=== PATIENT | male | born 1985 | race Caucasian/White ===

== ENCOUNTER 2021-03-04 10:07 | Day surgery (SDC) | payer OTHER ==
[~2021-03-04] VITALS: Ht 175.3 cm; Wt 94.7 kg
[2021-03-04 10:38] VITALS: BP 133/91; PULSE 77; TEMP 96.4
[2021-03-04] MEDS ORDERED: PROTONIX 40MG T40 MG PO (10:51)
[2021-03-04 12:35] VITALS: BP 125/88; PULSE 77; TEMP 97.3
--- NOTE | 2021-03-04 12:35 | NUR ---
PATIENT TRANSPORTED PER CART FROM GI SUITE TO BAY 1 ACCOMPANIED BY ENDO RN. PATIENT AMBULATED FROM CART TO CHAIR WITH STEADY GAIT. WITH 1 ASSIST. MONITORS APPLIED. VSS ON ROOM AIR. PATIENT TALKS WITH STAFF. VERBAL REPORT RECEIVED.
[2021-03-04 12:45] VITALS: BP 132/97; PULSE 64
--- NOTE | 2021-03-04 12:45 | NUR ---
VSS ON ROOM AIR. DR ROOT SPEAKS WITH PATIENT AND GIRLFRIEND WAS ON PHONE. PATIENT EATS MUFFIN AND DRINKS COFFEE WITHOUT PROBLEMS.
[2021-03-04 13:00] VITALS: BP 130/94; PULSE 69
--- NOTE | 2021-03-04 13:05 | NUR ---
VSS ON ROOM AIR. PATIENT TALKS WITH STAFF, DENIES PROBLEMS. IV SITE DC'D WITH CATHETER TIP INTACT. PRESSURE AND BANDAGE APPLIED. DISCHARGE INSTRUCTIONS GIVEN VERBAL AND DISCHARGE PACKET GIVEN TO PATIENT. QUESTIONS ANSWERED AND PATIENT VOICED UNDERSTANDING. PATIENT CHANGES INTO STREET CLOTHES. [id number] PATIENT'S RIDE HERE. PATIENT DISMISSED PER WHEEL CHAIR ACCOMPANIED BY AMB RN TO PRIVATE VECHILE DRIVEN BY COWORKER.
== END 2021-03-04 13:45 | disposition home or self-care (01) ==
LOC: SDCO 10:07
DX: K29.50 Unspecified chronic gastritis without bleeding (principal); K22.70 Barrett's esophagus without dysplasia; K21.00 Gastro-esophageal reflux disease with esophagitis, without bleeding; K92.1 Melena; K92.0 Hematemesis; Z20.822 Contact with and (suspected) exposure to COVID-19; Z80.0 Family history of malignant neoplasm of digestive organs
CPT/HCPCS: J2704; J7030